=== PATIENT | female | born 1985 | race American Indian/Alaskan Native ===

== ENCOUNTER 2017-04-10 07:40 | Emergency (ER) | payer SELFPAY ==
[2017-04-10 08:02] VITALS: BP 130/82
--- NOTE | 2017-04-10 08:54 | Emergency Department Report ---
HPI - General Chief Complaint: Upper Respiratory Infection Time Seen by Provider: 04/10/17 08:52 - HPI HPI: This is a 31 year-old female presents to the emergency department with a complaint of a 2 week history of a productive cough with some greenish sputum and now a 4 day history of some sore throat and right ear pain. She's been taking some TheraFlu and cough drops for her symptoms without any relief. She denies any fever, chest pain, shortness of breath, nausea, vomiting. No recent travel or sick contacts at home. She denies any past medical history. She does not have a primary care physician. ED Past Medical Hx - Past Medical History Previous Medical History?: Yes Additional medical history: Vaginal delivery x 1 - Surgical History Past Surgical History?: Yes Additional Surgical History: x 2 - Social History Smoking Status: Current Every Day Smoker Substance Use Type: Alcohol, Marijuana, Non Opiate Pain - Medications Home Medications: Home Medications Medication Instructions Recorded Confirmed Last Taken Type ALBUTEROL Inhaler [ProAir HFA 2 puff IH QID PRN #1 inhalation 04/10/17 Unknown Rx Inhaler] Sulfamethoxazole/Trimethoprim 1 each PO BID #16 tablet 04/10/17 Unknown Rx [Bactrim DS TAB] ED Review of Systems ROS: Stated complaint: EAR/THROAT PAIN Other details as noted in HPI Comment: All other systems reviewed and negative Constitutional: denies: chills, fever Eyes: denies: eye pain, eye discharge, vision change ENT: ear pain, throat pain Respiratory: cough. denies: shortness of breath Cardiovascular: denies: chest pain, palpitations Gastrointestinal: denies: abdominal pain, nausea, diarrhea Genitourinary: denies: urgency, dysuria, discharge Musculoskeletal: denies: back pain, joint swelling, arthralgia Skin: denies: rash, lesions Neurological: denies: headache, weakness, paresthesias Physical Exam - Physical Exam Vital Signs: Vital Signs 04/10/17 07:58 Temperature 98.7 F Pulse Rate 74 Respiratory 20 Rate Blood Pressure 130/82 O2 Sat by Pulse 97 Oximetry Physical Exam: GENERAL: The patient is well-developed well-nourished. HENT: Normocephalic. Atraumatic. Patient has moist mucous membranes. There is bilateral tonsillar hypertrophy that is greater on the right than left. There is right-sided tonsillar exudates. No drooling or trismus. Normal bilateral external ear canals and tympanic membranes. EYES: Extraocular motions are intact. Pupils equal reactive to light bilaterally. NECK: Supple. Trachea is midline. CHEST/LUNGS: There is some mild wheezing throughout the chest, worse on the left side. No tachypnea or accessory muscle use. There is a productive sounding cough heard during examination. There is no respiratory distress noted. HEART/CARDIOVASCULAR: Regular. There is no tachycardia. There is no murmur. ABDOMEN: Abdomen is soft, nontender. Patient has normal bowel sounds. There is no abdominal distention. SKIN: Skin is warm and dry. NEURO: The patient is awake, alert, and oriented. The patient is cooperative. The patient has no focal neurologic deficits. The patient has normal speech. MUSCULOSKELETAL: There is no tenderness or deformity. There is no limitation range of motion. There is no evidence of acute injury. ED Course Vital Signs 04/10/17 07:58 Temperature 98.7 F Pulse Rate 74 Respiratory 20 Rate Blood Pressure 130/82 O2 Sat by Pulse 97 Oximetry ED Medical Decision Making - Radiology Data Radiology results: image reviewed interpreted by me: Chest x-ray does not show any acute process. There are no pleural effusions, obvious pneumonia and there is no pneumothorax. - Medical Decision Making He presents with a two-week history of a cough and a 4 day history of right ear and some right-sided throat pain. On physical exam the throat appears consistent with strep pharyngitis and this was confirmed with a positive rapid strep test. Chest x-ray did not show any signs of pneumonia or any other acute process. She was given a breathing treatment for the bronchospasm. She will go home with a prescription for antibiotics and an albuterol inhaler. She was given multiple referrals for primary care. Vital signs stable throughout her ED course. - Differential Diagnosis strep pharyngitis, mono, pneumonia, URI Critical Care Time: No Critical care attestation.: If time is entered above; I have spent that time in minutes in the direct care of this critically ill patient, excluding procedure time. ED Disposition Clinical Impression: Strep pharyngitis, Bronchospasm Disposition: DC- TO HOME OR SELFCARE Is pt being admited?: No Condition: Stable Instructions: Strep Throat (ED), Bronchospasm (ED) Additional Instructions: Please follow up with a primary care physician in the next few days. Return to the emergency Department with any worsening of your symptoms or any acute distress. Do not share any food or drinks with anyone else as you could infect them. You can use Tylenol every 4 hours and ibuprofen every 6 hours, using weight- based dosing, as needed for fever or discomfort. Prescriptions: ALBUTEROL Inhaler [ProAir HFA Inhaler] 2 puff IH QID PRN #1 inhalation PRN Reason: Shortness Of Breath Sulfamethoxazole/Trimethoprim [Bactrim DS TAB] 1 each PO BID #16 tablet Referrals: PRIMARY CARE, [Primary Care Provider] - 3-5 Days SEVERO COURTNEY MD [Staff Physician] - 3-5 Days TRISHA ALFONSO MD [Referring] - 3-5 Days MELLO ALBARRAN MD [Staff Physician] - 3-5 Days Time of Disposition: 11:13
--- NOTE | 2017-04-10 09:43 | XRay Report ---
CHEST 2 VIEWS INDICATION: Cough. COMPARISON: None similar at this institution. FINDINGS: PA and lateral chest radiographs demonstrate normal cardiomediastinal silhouette. Slight peribronchial thickening centrally not excluded. Otherwise clear lungs. Thoracic spine straightening. CONCLUSION: Slight peribronchial thickening without evidence of pneumonia. Please correlate. Thank you for the opportunity to participate in this patient's care.
[2017-04-10] MEDS ORDERED: BACTRIM DS PO ONE (09:54)
[2017-04-10] MEDS: DUONEB *Not for PRN Use IH ONE ×2 (10:36→11:17)
== END 2017-04-10 11:35 | disposition home or self-care (01) ==
LOC: ED 07:40
DX: J02.0 Streptococcal pharyngitis (principal); J98.01 Acute bronchospasm; F12.10 Cannabis abuse, uncomplicated; F17.200 Nicotine dependence, unspecified, uncomplicated; Z98.890 Other specified postprocedural states
CPT/HCPCS: 71020; 87430; 94640; 99283

== ENCOUNTER 2017-05-16 09:05 | Emergency (ER) | payer SELFPAY ==
--- NOTE | 2017-05-16 11:01 | Emergency Department Report ---
ED Rash HPI - HPI Chief Complaint: Skin Rash Stated Complaint: BACK AND SIDE PAIN/ RASH Time Seen by Provider: 05/16/17 10:11 Duration: Today Location: Abdomen Rash Symptoms: Yes Itching, Yes Blistering, No Facial Swelling, No Tongue/Oral Swelling, No Breathing Difficulties, No Choking Sensation, No Wheezing/Dyspnea, No Peeling, No Fever, No Lightheaded, No Malaise, No Myalgias Severity: mild Other History: 31-year-old female past medical history obesity presents with complaint of one week of sided abdominal rash itchy with some vesicles for 1 week. Patient denies fevers chills nausea vomiting abdominal pain. States it is a burning sensation. Denies any dysuria or hematuria or increased urinary frequency. Patient awake alert and oriented 3 not in acute distress. ED Review of Systems ROS: Stated complaint: BACK AND SIDE PAIN/ RASH Other details as noted in HPI Constitutional: denies: chills, fever Eyes: denies: eye pain, eye discharge, vision change ENT: denies: ear pain, throat pain Respiratory: denies: cough, shortness of breath, wheezing Cardiovascular: denies: chest pain, palpitations Endocrine: no symptoms reported Gastrointestinal: denies: abdominal pain, nausea, diarrhea Genitourinary: denies: urgency, dysuria, discharge Musculoskeletal: denies: back pain, joint swelling, arthralgia Skin: denies: rash, lesions Neurological: denies: headache, weakness, paresthesias Psychiatric: denies: anxiety, depression Hematological/Lymphatic: denies: easy bleeding, easy bruising ED Past Medical Hx - Past Medical History Previous Medical History?: No Additional medical history: Vaginal delivery x 1 - Surgical History Additional Surgical History: x 2 - Social History Smoking Status: Current Every Day Smoker Substance Use Type: None - Medications Home Medications: Home Medications Medication Instructions Recorded Confirmed Last Taken Type ALBUTEROL Inhaler [ProAir HFA 2 puff IH QID PRN #1 inhalation 04/10/17 Unknown Rx Inhaler] Sulfamethoxazole/Trimethoprim 1 each PO BID #16 tablet 04/10/17 Unknown Rx [Bactrim DS TAB] Acetaminophen/Codeine [Tylenol 1 tab PO Q6H PRN #15 tab 05/16/17 Unknown Rx /Codeine # 3 tab] Ibuprofen [Motrin] 800 mg PO Q8HR PRN #30 tablet 05/16/17 Unknown Rx Valacyclovir HCl [Valtrex] 1,000 mg PO TID #21 tablet 05/16/17 Unknown Rx Rash Exam - Exam General: Vital signs noted. No distress. Alert and acting appropriately. HEENT: No Periorbital Edema, No Conjuctival Injection, No Chemosis, No Perioral Edema, No Tongue Edema, No Uvular Edema, No Compromised Airway, No Drooling Lungs: Yes Good Air Exchange (Normal Breath Sounds), No Wheezes, No Ronchi, No Stridor, No Cough, No Labored Respirations, No Retractions, No Use of Accessory Muscles, No Other Abnormal Lung Sounds Heart: Yes Regular, No Murmur Skin: Yes Maculopapular Rash (vesicular rash on the left flank), No Urticarial Rash, No Morbilliform rash, No Bulla(e), No Excoriations, No Weeping, No Tenderness, No Erythema, No Edema, No Encrustations, No Other Other: Positive: Abdomen Normal, Neurologic Normal, Musculoskeletal Normal ED Course Vital Signs 05/16/17 09:11 Temperature 98.3 F Pulse Rate 67 Respiratory 16 Rate Blood Pressure 120/79 O2 Sat by Pulse 100 Oximetry ED Medical Decision Making - Medical Decision Making A/P: Shingles rash 1-empiric valacyclovir course 2-Tylenol No. 3 when necessary, Motrin when necessary 3-I advised patient to the perform hand hygiene avidly 4- follow up with primary care doctor Critical care attestation.: If time is entered above; I have spent that time in minutes in the direct care of this critically ill patient, excluding procedure time. ED Disposition Clinical Impression: Shingles rash Qualifiers: Herpes zoster complications: without complications Qualified Code(s): B02.9 - Zoster without complications Disposition: -01 TO HOME OR SELFCARE Is pt being admited?: No Does the pt Need Aspirin: No Condition: Stable Instructions: Herpes Zoster (ED) Prescriptions: Acetaminophen/Codeine [Tylenol /Codeine # 3 tab] 1 tab PO Q6H PRN #15 tab PRN Reason: Pain Ibuprofen [Motrin] 800 mg PO Q8HR PRN #30 tablet PRN Reason: Pain Valacyclovir HCl [Valtrex] 1,000 mg PO TID #21 tablet Referrals: [facility] [Outside] - 3-5 Days [facility] [Outside] - 3-5 Days Forms: Work/School Release Form(ED) Time of Disposition: 11:01
[2017-05-16 11:16] VITALS: BP 128/84
== END 2017-05-16 11:15 | disposition home or self-care (01) ==
LOC: ED 09:05
DX: B02.9 Zoster without complications (principal); F17.200 Nicotine dependence, unspecified, uncomplicated; Z88.0 Allergy status to penicillin; Z88.8 Allergy status to other drugs, medicaments and biological substances
CPT/HCPCS: 99282

== ENCOUNTER 2018-11-30 10:22 | Emergency (ER) | payer OTHER ==
[2018-11-30 10:49] VITALS: BP 136/81
--- NOTE | 2018-11-30 11:56 | Emergency Department Report ---
ED Eye Problem HPI - General Chief complaint: Eye Problems Stated complaint: R EYE SWOLLEN Time Seen by Provider: 11/30/18 11:33 Source: patient Mode of arrival: Ambulatory Limitations: No Limitations - History of Present Illness chief complaint: eye pain (sweling to right upper eyelid), eye redness -: days(s) (4) Onset Description: gradual Location: right eye Place: home Eye Symptoms: pain, other - Related Data Previous Rx's Medication Instructions Recorded Last Taken Type ALBUTEROL Inhaler (OR & NICU) 2 puff IH QID PRN #1 inhalation 04/10/17 Unknown Rx [ProAir HFA Inhaler] Sulfamethoxazole/Trimethoprim 1 each PO BID #16 tablet 04/10/17 Unknown Rx [Bactrim DS TAB] Acetaminophen/Codeine [Tylenol 1 tab PO Q6H PRN #15 tab 05/16/17 Unknown Rx /Codeine # 3 tab] Ibuprofen [Motrin] 800 mg PO Q8HR PRN #30 tablet 05/16/17 Unknown Rx Valacyclovir HCl [Valtrex] 1,000 mg PO TID #21 tablet 05/16/17 Unknown Rx Gentamicin 0.3% Ophth Oint 1 applicatio OP Q4H #1 tube 11/30/18 Unknown Rx Allergies Allergy/AdvReac Type Severity Reaction Status Date / Time metronidazole [From Flagyl] Allergy Swelling Verified 11/30/18 10:33 Penicillins Allergy Unknown Verified 11/30/18 10:33 ED Review of Systems ROS: Stated complaint: R EYE SWOLLEN Other details as noted in HPI Comment: All other systems reviewed and negative ED Past Medical Hx - Past Medical History Previous Medical History?: Yes Additional medical history: Vaginal delivery x 1 - Surgical History Additional Surgical History: x 2 - Social History Smoking Status: Current Every Day Smoker Substance Use Type: None - Medications Home Medications: Home Medications Medication Instructions Recorded Confirmed Last Taken Type ALBUTEROL Inhaler (OR & NICU) 2 puff IH QID PRN #1 inhalation 04/10/17 Unknown Rx [ProAir HFA Inhaler] Sulfamethoxazole/Trimethoprim 1 each PO BID #16 tablet 04/10/17 Unknown Rx [Bactrim DS TAB] Acetaminophen/Codeine [Tylenol 1 tab PO Q6H PRN #15 tab 05/16/17 Unknown Rx /Codeine # 3 tab] Ibuprofen [Motrin] 800 mg PO Q8HR PRN #30 tablet 05/16/17 Unknown Rx Valacyclovir HCl [Valtrex] 1,000 mg PO TID #21 tablet 05/16/17 Unknown Rx Gentamicin 0.3% Ophth Oint 1 applicatio OP Q4H #1 tube 11/30/18 Unknown Rx ED Physical Exam - General Limitations: No Limitations - Head Head exam: Present: atraumatic - Eye Eye exam: Present: PERRL, EOMI, periorbital swelling (to the right upper eyelids swelling noted. No foreign bodies appreciated.) Pupils: Present: normal accommodation - Expanded Eye Exam Expanded Eyelids: Stye: Right Pupils: Regular, Round: Bilateral, Reactive: Bilateral Sclera/Conjunctival: Normal Inspection: Bilateral - ENT ENT exam: Present: normal exam - Neck Neck exam: Present: normal inspection - Respiratory Respiratory exam: Present: normal lung sounds bilaterally - Cardiovascular Cardiovascular Exam: Present: regular rate - GI/Abdominal GI/Abdominal exam: Absent: distended, guarding, organomegaly, bruit, pulsatile mass ED Course Vital Signs 11/30/18 10:46 Temperature 98.3 F Pulse Rate 70 Respiratory 18 Rate Blood Pressure 136/81 O2 Sat by Pulse 99 Oximetry Critical care attestation.: If time is entered above; I have spent that time in minutes in the direct care of this critically ill patient, excluding procedure time. ED Disposition Clinical Impression: Seda Disposition: DC-01 TO HOME OR SELFCARE Is pt being admited?: No Does the pt Need Aspirin: No Condition: Stable Instructions: Stye (ED) Prescriptions: Gentamicin 0.3% Ophth Oint 1 applicatio OP Q4H #1 tube Referrals: CAROLINA MAHMOOD MD [Primary Care Provider] - 3-5 Days
== END 2018-11-30 12:20 | disposition home or self-care (01) ==
LOC: ED 10:22
DX: H00.011 Hordeolum externum right upper eyelid (principal); F17.200 Nicotine dependence, unspecified, uncomplicated; Z79.899 Other long term (current) drug therapy; Z88.1 Allergy status to other antibiotic agents; Z88.0 Allergy status to penicillin
CPT/HCPCS: 99282

== ENCOUNTER 2018-12-20 08:33 | Emergency (ER) | payer BC, OTHER ==
[2018-12-20 08:52] VITALS: BP 140/83
--- NOTE | 2018-12-20 09:21 | XRay Report ---
RIGHT FOREARM, 2 VIEWS INDICATION: injury with swelling. Small laceration to mid forearm yesterday. COMPARISON: None. IMPRESSION: No acute osseous or soft tissue abnormality. No significant DJD. No radiopaque foreig n body or soft tissue gas is identified. Signer Name: Alfonso Nguyen Jr, MD Signed: 12/20/2018 9:17 AM Workstation Name: [id number]
[2018-12-20] MEDS ORDERED: NORCO 5/325 PO ONE (09:39)
--- NOTE | 2018-12-20 10:29 | Emergency Department Report ---
ED Upper Extremity Inj HPI - General Chief Complaint: Extremity Injury, Upper Stated Complaint: ARM PAIN Time Seen by Provider: 12/20/18 09:23 Source: patient Mode of arrival: Ambulatory Limitations: No Limitations - History of Present Illness Initial Comments: Had a fall and landed on a screwdriver on the right forearm near the wrist causing pain with with grasping and movement of the thumb and movement of her wrist and some swelling at the site, consistent either ED for further evaluation, treatment options. Reports no numbness or tingling. No discharge. Pain is dull and throbbing, worse with range of motion of palpation. Complaint: Injury to:: forearm Other Extremity Injury: Wrist: Right, Forearm: Right Other Injuries: none Handedness: right Place: home Improves With: movement Worsens With: none Context: injury Associated Symptoms: denies other symptoms - Related Data Previous Rx's Medication Instructions Recorded Last Taken Type ALBUTEROL Inhaler (OR & NICU) 2 puff IH QID PRN #1 inhalation 04/10/17 Unknown Rx [ProAir HFA Inhaler] Sulfamethoxazole/Trimethoprim 1 each PO BID #16 tablet 04/10/17 Unknown Rx [Bactrim DS TAB] Acetaminophen/Codeine [Tylenol 1 tab PO Q6H PRN #15 tab 05/16/17 Unknown Rx /Codeine # 3 tab] Ibuprofen [Motrin] 800 mg PO Q8HR PRN #30 tablet 05/16/17 Unknown Rx Valacyclovir HCl [Valtrex] 1,000 mg PO TID #21 tablet 05/16/17 Unknown Rx Gentamicin 0.3% Ophth Oint 1 applicatio OP Q4H #1 tube 11/30/18 Unknown Rx Chlorhexidine Gluconate [Hibiclens] 5 ml TP BID #240 liquid 12/20/18 Unknown Rx cephALEXin [Keflex] 500 mg PO Q8HR #30 cap 12/20/18 Unknown Rx Allergies Allergy/AdvReac Type Severity Reaction Status Date / Time metronidazole [From Flagyl] Allergy Swelling Verified 11/30/18 10:33 Penicillins Allergy Unknown Verified 11/30/18 10:33 ED Review of Systems ROS: Stated complaint: ARM PAIN Other details as noted in HPI Comment: All other systems reviewed and negative ED Past Medical Hx - Past Medical History Previous Medical History?: Yes Additional medical history: Vaginal delivery x 1 - Surgical History Past Surgical History?: Yes Additional Surgical History: x 2 - Social History Smoking Status: Current Every Day Smoker Substance Use Type: None - Medications Home Medications: Home Medications Medication Instructions Recorded Confirmed Last Taken Type ALBUTEROL Inhaler (OR & NICU) 2 puff IH QID PRN #1 inhalation 04/10/17 Unknown Rx [ProAir HFA Inhaler] Sulfamethoxazole/Trimethoprim 1 each PO BID #16 tablet 04/10/17 Unknown Rx [Bactrim DS TAB] Acetaminophen/Codeine [Tylenol 1 tab PO Q6H PRN #15 tab 05/16/17 Unknown Rx /Codeine # 3 tab] Ibuprofen [Motrin] 800 mg PO Q8HR PRN #30 tablet 05/16/17 Unknown Rx Valacyclovir HCl [Valtrex] 1,000 mg PO TID #21 tablet 05/16/17 Unknown Rx Gentamicin 0.3% Ophth Oint 1 applicatio OP Q4H #1 tube 11/30/18 Unknown Rx Chlorhexidine Gluconate [Hibiclens] 5 ml TP BID #240 liquid 12/20/18 Unknown Rx cephALEXin [Keflex] 500 mg PO Q8HR #30 cap 12/20/18 Unknown Rx ED Physical Exam - General Limitations: No Limitations General appearance: alert, in no apparent distress - Head Head exam: Present: atraumatic, normocephalic - Eye Eye exam: Present: normal appearance, PERRL, EOMI Pupils: Present: normal accommodation - ENT ENT exam: Present: normal exam, mucous membranes moist - Neck Neck exam: Present: normal inspection, full ROM. Absent: meningismus, lymphadenopathy, thyromegaly - Respiratory Respiratory exam: Present: normal lung sounds bilaterally. Absent: respiratory distress, wheezes, rales, chest wall tenderness, accessory muscle use, decreased breath sounds - Cardiovascular Cardiovascular Exam: Present: regular rate, normal rhythm. Absent: systolic murmur, diastolic murmur, rubs, gallop - GI/Abdominal GI/Abdominal exam: Present: soft, normal bowel sounds - Extremities Exam Extremities exam: Present: normal inspection, tenderness (the right wrist), normal capillary refill - Back Exam Back exam: Present: normal inspection. Absent: CVA tenderness (R), CVA tenderness (L), muscle spasm - Neurological Exam Neurological exam: Present: alert, oriented X3, CN II-XII intact, normal gait - Psychiatric Psychiatric exam: Present: normal affect, normal mood. Absent: flat affect, manic - Skin Skin exam: Present: warm, dry, intact, normal color. Absent: rash, cyanosis, diaphoretic, erythema, petechiae, pallor, abrasion ED Course Vital Signs 12/20/18 12/20/18 08:46 09:45 Temperature 98.5 F Pulse Rate 72 Respiratory 18 20 Rate Blood Pressure 140/83 O2 Sat by Pulse 100 Oximetry Critical care attestation.: If time is entered above; I have spent that time in minutes in the direct care of this critically ill patient, excluding procedure time. ED Disposition Clinical Impression: Puncture wound Disposition: DC-01 TO HOME OR SELFCARE Is pt being admited?: No Does the pt Need Aspirin: No Condition: Stable Instructions: Puncture Wound (ED) Prescriptions: Chlorhexidine Gluconate [Hibiclens] 5 ml TP BID #240 liquid cephALEXin [Keflex] 500 mg PO Q8HR #30 cap Referrals: CAROLINA MAHMOOD MD [Primary Care Provider] - 3-5 Days
== END 2018-12-20 10:30 | disposition home or self-care (01) ==
LOC: ED 08:33
DX: S61.531A Puncture wound without foreign body of right wrist, initial encounter (principal); F17.200 Nicotine dependence, unspecified, uncomplicated; Z88.0 Allergy status to penicillin; Z88.8 Allergy status to other drugs, medicaments and biological substances; Z79.899 Other long term (current) drug therapy; X58.XXXA Exposure to other specified factors, initial encounter; Y93.89 Activity, other specified; Y92.89 Other specified places as the place of occurrence of the external cause; Y99.8 Other external cause status

== ENCOUNTER 2019-04-18 08:29 | Emergency (ER) | payer BC ==
[2019-04-18 08:39] VITALS: BP 120/55
--- NOTE | 2019-04-18 10:02 | Emergency Department Report ---
Chief Complaint: Sore Throat Stated Complaint: SORE THROAT/EAR PAIN Time Seen by Provider: 04/18/19 09:49 - HPI History of Present Illness: 32-year-old female presents to the emergency room complaining of sore throat and left ear pain 2 days. Patient states she's been taking TheraFlu and NyQuil. Patient's taking nothing for pain. She denies any fever chills no nausea no vomiting. Patient denies any cough shortness of breath. Patient does not have a primary care provider. - Exam Vital Signs: Vital Signs 04/18/19 08:38 Temperature 99.1 F Pulse Rate 85 Respiratory 20 Rate Blood Pressure 120/55 [Right] O2 Sat by Pulse 100 Oximetry Physical Exam: Patient's alert and oriented nontoxic in no acute distress. Mouth moist tonsils hypertrophic with white exudate. Left ear normal no signs of infection MSE screening note: Focused history and physical exam performed. Due to findings the following was ordered: 32-year-old female presents to the emergency room complaining of sore throat and left ear pain 2 days. Patient states she's been taking TheraFlu and NyQuil. Patient's taking nothing for pain. She denies any fever chills no nausea no vomiting. Patient denies any cough shortness of breath. Patient does not have a primary care provider. Discussed patient she can follow up at the urgent care clinic as this is not deemed to be a life-threatening emergency for emergency of loss of limb. Patient verbalized understanding ED Disposition for MSE Disposition: Z-07 MED SCREENING EXAM-LEFT Is pt being admited?: No Does the pt Need Aspirin: No Condition: Stable Referrals: PRIMARY CARE, [Primary Care Provider] - 3-5 Days urgent, care [Other] - 3-5 Days
== END 2019-04-18 10:05 | disposition left against medical advice (07) ==
LOC: ED 08:29
DX: H92.02 Otalgia, left ear (principal); J02.9 Acute pharyngitis, unspecified; Z88.1 Allergy status to other antibiotic agents; Z88.0 Allergy status to penicillin
CPT/HCPCS: 99282

== ENCOUNTER 2020-02-07 10:29 | Outpatient (CLI) | payer BC, MEDICAID ==
[2020-02-07 11:19] VITALS: BP 97/55
[2020-02-07] MEDS ORDERED: ACETAMINOPHEN 325 MG TAB PO ONE (11:38)
--- NOTE | 2020-02-07 14:11 | Ultrasound Report ---
US OB BPP wo non-stress, US OB limited INDICATION / CLINICAL INFORMATION: BPP and EMERSON 35w. COMPARISON: None available. FINDINGS: Single, viable intrauterine in cephalic presentation. heart rate 1:30. Amniotic fluid volume is normal, with a fluid index of 11 cm. Biophysical profile: breathing movements: 2 movements: 2 posture and tone: 2 Amniotic fluid volume: 2 Total biophysical profile score: 8/8 IMPRESSION: 1. Viable intrauterine , with normal amniotic fluid volume. 2. Normal biophysical profile. Signer Name: Anjel Lopez MD Signed: 02/07/2020 2:07 PM Workstation Name: [id number]
== END 2020-02-07 13:25 | disposition home or self-care (01) ==
LOC: TRG 10:29 → APU 10:31 → TRG 13:25
PROVIDERS: ATTEND Obstetrics & Gynecology
DX: O26.893 Other specified pregnancy related conditions, third trimester (principal); R10.30 Lower abdominal pain, unspecified; Z3A.32 32 weeks gestation of pregnancy
CPT/HCPCS: 59025; 76815; 76819

== ENCOUNTER 2021-08-08 10:07 | Emergency (ER) | payer MEDICAID ==
[2021-08-08 11:01] VITALS: BP 128/75
--- NOTE | 2021-08-08 13:21 | Emergency Department Report ---
ED ENT HPI - General Chief complaint: Dental/Oral Stated complaint: TOOTHACHE Time Seen by Provider: 08/08/21 13:15 Source: patient Mode of arrival: Ambulatory Limitations: No Limitations - History of Present Illness Initial comments: 35-year-old -[place] female presents to the emergency room for left upper jaw pain with swelling. Patient states that yesterday was the worst day. She complains that her tooth has been broken off to the gum and now has been swollen and is causing her face to swell as well. Patient states has been taking ibuprofen 800 mg as well as 1 amoxicillin tablet. She denies any drainage no fever no chills no sore throat no swelling of her neck. MD complaint: tooth pain Onset/Timin -: days(s) Location: tooth # (14) Severity: severe Quality: stabbing, aching, sharp Consistency: constant Improves with: none Worsens with: eating Context- Dental: trauma (Broken tooth to the gum) - Related Data Previous Rx's Medication Instructions Recorded Last Taken Type Albuterol Mdi (or & Nicu Only) 2 puff IH QID PRN #1 inhalation 04/10/17 Unknown Rx [ProAir HFA Inhaler] Sulfamethoxazole/Trimethoprim 1 each PO BID #16 tablet 04/10/17 Unknown Rx [Bactrim DS TAB] Acetaminophen/Codeine [Tylenol 1 tab PO Q6H PRN #15 tab 05/16/17 Unknown Rx /Codeine # 3 tab] Ibuprofen [Motrin] 800 mg PO Q8HR PRN #30 tablet 05/16/17 Unknown Rx Valacyclovir HCl [Valtrex] 1,000 mg PO TID #21 tablet 05/16/17 Unknown Rx Gentamicin 0.3% Ophth Oint 1 applicatio OP Q4H #1 tube 11/30/18 Unknown Rx Chlorhexidine Gluconate [Hibiclens] 5 ml TP BID #240 liquid 12/20/18 Unknown Rx cephALEXin [Keflex] 500 mg PO Q8HR #30 cap 12/20/18 Unknown Rx Clindamycin [Clindamycin CAP] 300 mg PO Q8H #21 cap 01/08/19 Unknown Rx Ibuprofen [Motrin 800 MG tab] 800 mg PO Q6H PRN #30 tablet 03/20/20 Unknown Rx oxyCODONE /ACETAMINOPHEN [Percocet 1 tab PO Q6H PRN #30 tablet 03/20/20 Unknown Rx 5/325 mg] Amoxicillin/Potassium Clav 1 each PO Q12H 10 Days #20 tab 08/08/21 Unknown Rx [Augmentin 875-125 Tablet] Ibuprofen [Motrin 800 MG tab] 800 mg PO Q8HR PRN #30 tablet 08/08/21 Unknown Rx Allergies Allergy/AdvReac Type Severity Reaction Status Date / Time metronidazole [From Flagyl] Allergy Swelling Verified 03/20/20 15:53 ED Dental HPI - General Chief complaint: Dental/Oral Stated complaint: TOOTHACHE Time Seen by Provider: 08/08/21 13:15 Source: patient Mode of arrival: Ambulatory Limitations: No Limitations - Related Data Previous Rx's Medication Instructions Recorded Last Taken Type Albuterol Mdi (or & Nicu Only) 2 puff IH QID PRN #1 inhalation 04/10/17 Unknown Rx [ProAir HFA Inhaler] Sulfamethoxazole/Trimethoprim 1 each PO BID #16 tablet 04/10/17 Unknown Rx [Bactrim DS TAB] Acetaminophen/Codeine [Tylenol 1 tab PO Q6H PRN #15 tab 05/16/17 Unknown Rx /Codeine # 3 tab] Ibuprofen [Motrin] 800 mg PO Q8HR PRN #30 tablet 05/16/17 Unknown Rx Valacyclovir HCl [Valtrex] 1,000 mg PO TID #21 tablet 05/16/17 Unknown Rx Gentamicin 0.3% Ophth Oint 1 applicatio OP Q4H #1 tube 11/30/18 Unknown Rx Chlorhexidine Gluconate [Hibiclens] 5 ml TP BID #240 liquid 12/20/18 Unknown Rx cephALEXin [Keflex] 500 mg PO Q8HR #30 cap 12/20/18 Unknown Rx Clindamycin [Clindamycin CAP] 300 mg PO Q8H #21 cap 01/08/19 Unknown Rx Ibuprofen [Motrin 800 MG tab] 800 mg PO Q6H PRN #30 tablet 03/20/20 Unknown Rx oxyCODONE /ACETAMINOPHEN [Percocet 1 tab PO Q6H PRN #30 tablet 03/20/20 Unknown Rx 5/325 mg] Amoxicillin/Potassium Clav 1 each PO Q12H 10 Days #20 tab 08/08/21 Unknown Rx [Augmentin 875-125 Tablet] Ibuprofen [Motrin 800 MG tab] 800 mg PO Q8HR PRN #30 tablet 08/08/21 Unknown Rx Allergies Allergy/AdvReac Type Severity Reaction Status Date / Time metronidazole [From Flagyl] Allergy Swelling Verified 03/20/20 15:53 ED Review of Systems ROS: Stated complaint: TOOTHACHE Other details as noted in HPI Comment: All other systems reviewed and negative ED Past Medical Hx - Past Medical History Hx Hypertension: No Hx Congestive Heart Failure: No Hx Diabetes: No Hx Deep Vein Thrombosis: No Hx Renal Disease: No Hx Sickle Cell Disease: No Hx Seizures: No Hx Asthma: No Hx COPD: No Hx HIV: No Additional medical history: Vaginal delivery x 1 - Surgical History Additional Surgical History: x 2 - Social History Smoking Status: Former Smoker - Medications Home Medications: Home Medications Medication Instructions Recorded Confirmed Last Taken Type Albuterol Mdi (or & Nicu Only) 2 puff IH QID PRN #1 inhalation 04/10/17 03/20/20 Unknown Rx [ProAir HFA Inhaler] Sulfamethoxazole/Trimethoprim 1 each PO BID #16 tablet 04/10/17 03/20/20 Unknown Rx [Bactrim DS TAB] Acetaminophen/Codeine [Tylenol 1 tab PO Q6H PRN #15 tab 05/16/17 03/20/20 Unknown Rx /Codeine # 3 tab] Ibuprofen [Motrin] 800 mg PO Q8HR PRN #30 tablet 05/16/17 03/20/20 Unknown Rx Valacyclovir HCl [Valtrex] 1,000 mg PO TID #21 tablet 05/16/17 03/20/20 Unknown Rx Gentamicin 0.3% Ophth Oint 1 applicatio OP Q4H #1 tube 11/30/18 03/20/20 Unknown Rx Chlorhexidine Gluconate [Hibiclens] 5 ml TP BID #240 liquid 12/20/18 03/20/20 Unknown Rx cephALEXin [Keflex] 500 mg PO Q8HR #30 cap 12/20/18 03/20/20 Unknown Rx Clindamycin [Clindamycin CAP] 300 mg PO Q8H #21 cap 01/08/19 03/20/20 Unknown Rx Ibuprofen [Motrin 800 MG tab] 800 mg PO Q6H PRN #30 tablet 03/20/20 Unknown Rx oxyCODONE /ACETAMINOPHEN [Percocet 1 tab PO Q6H PRN #30 tablet 03/20/20 Unknown Rx 5/325 mg] Amoxicillin/Potassium Clav 1 each PO Q12H 10 Days #20 tab 08/08/21 Unknown Rx [Augmentin 875-125 Tablet] Ibuprofen [Motrin 800 MG tab] 800 mg PO Q8HR PRN #30 tablet 08/08/21 Unknown Rx ED Physical Exam - General Limitations: No Limitations General appearance: alert, in no apparent distress - Head Head exam: Present: atraumatic, normocephalic - Eye Eye exam: Present: normal appearance, PERRL, EOMI - ENT ENT exam: Present: mucous membranes moist - Expanded ENT Exam Expanded Teeth exam: Present: fractured tooth # (14), dental tenderness # (14), gingival enlargement, other (Broken down to the gumline) Throat exam: Positive: normal inspection - Neck Neck exam: Present: normal inspection, full ROM. Absent: lymphadenopathy - Respiratory Respiratory exam: Absent: respiratory distress - Cardiovascular Cardiovascular Exam: Present: regular rate - Extremities Exam Extremities exam: Present: normal inspection, full ROM - Back Exam Back exam: Present: normal inspection - Neurological Exam Neurological exam: Present: alert, oriented X3, normal gait - Psychiatric Psychiatric exam: Present: normal affect, normal mood - Skin Skin exam: Present: warm, dry, intact, normal color. Absent: rash ED Course Vital Signs 08/08/21 10:59 Temperature 98.4 F Pulse Rate 70 Respiratory 18 Rate Blood Pressure 128/75 [Right] O2 Sat by Pulse 98 Oximetry ED Medical Decision Making - Medical Decision Making 35-year-old -[place] female presents to the emergency room for left upper jaw pain with swelling. Patient states that yesterday was the worst day. She complains that her tooth has been broken off to the gum and now has been swollen and is causing her face to swell as well. Patient states has been taking ibuprofen 800 mg as well as 1 amoxicillin tablet. She denies any drainage no fever no chills no sore throat no swelling of her neck. Patient appears to have a dental abscess and now left upper jaw. We will place her on Augmentin 875 mg p.o. twice daily for 10 days ibuprofen 800 mg every 8 hours as needed for pain. And referral to dental. Critical care attestation.: If time is entered above; I have spent that time in minutes in the direct care of this critically ill patient, excluding procedure time. ED Disposition Clinical Impression: Dental abscess Disposition: 01 HOME / SELF CARE / HOMELESS Is pt being admited?: No Does the pt Need Aspirin: No Condition: Stable Instructions: Dental Abscess, [id number] Additional Instructions: Complete antibiotics as prescribed pain medication as needed. Follow-up with your dentist. I have referred you to several other dentist to see if they are able to help you. Prescriptions: Amoxicillin/Potassium Clav [Augmentin 875-125 Tablet] 1 each PO Q12H 10 Days #20 tab Ibuprofen [Motrin 800 MG tab] 800 mg PO Q8HR PRN #30 tablet PRN Reason: Pain , Severe (7-10) Referrals: [facility] [Outside] - 3-5 Days [facility] [Outside] - 3-5 Days Forms: Work/School Release Form(ED) Time of Disposition: 13:22
== END 2021-08-08 15:53 | disposition home or self-care (01) ==
LOC: ED 10:07
DX: K04.7 Periapical abscess without sinus (principal); Z88.8 Allergy status to other drugs, medicaments and biological substances; Z87.891 Personal history of nicotine dependence
CPT/HCPCS: 99282